=== PATIENT | female | born 1985 | race Caucasian/White ===

== ENCOUNTER 2018-03-02 13:04 | Inpatient (IN) | payer BC ==
[2018-03-10] MEDS ORDERED: METHYLERGONOVINE 0.2 MG/ML 1 ML AMP IM PRN (06:19)
[2018-03-10] MEDS ORDERED: OXYTOCIN 10 UNIT/ML 1 ML VIAL IM PRN (06:19)
[2018-03-10] MEDS ORDERED: CARBOPROST TROMETHAMINE 250 MCG/ML 1 ML AMP IM PRN (06:19)
[2018-03-10] MEDS ORDERED: TERBUTALINE 1 MG/ML VIAL SQ PRN (06:19)
[2018-03-10] MEDS ORDERED: LIDOCAINE 0.5% (PF) 5 MG/ML (50 ML SDV) SQ PRN (06:19)
[2018-03-10] MEDS ORDERED: OXYTOCIN 20 UNITS/1000 ML NS 1,000 ML IV SCH ×2 (06:30→18:15)
[2018-03-10 06:39] VITALS: BMI 43.2
[2018-03-10] MEDS: LACTATED RINGERS 1,000 ML IV SCH ×3 (06:41→13:53)
[2018-03-10 06:53] LABS: Basophils % (A) 0 %; Eosinophils # (A) 0.1 k/uL (0-0.7); Eosinophils % (A) 1 %; HCT 33.8 % (34.0-46.0); HGB 10.6 gm/dL (11.4-16.0); Lymphocytes # (A) 2.2 k/uL (1.0-4.8); Lymphocytes % (A) 25 %; MCH 28.2 pg (25.0-35.0); MCHC 31.3 g/dL (31.0-37.0); MCV 89.9 fL (80.0-100.0); Mean Platelet Volume 7.4; Monocytes # (A) 0.4 k/uL (0-1.0); Monocytes % (A) 5 %; Neutrophils # (A) 6.1 k/uL (1.3-7.7); Neutrophils % (A) 67 %; Platelet Count 271 k/uL (150-450); RBC 3.76 m/uL (3.80-5.40); RDW 14.9 % (11.5-15.5); WBC 9.1 k/uL (3.8-10.6)
--- NOTE | 2018-03-10 08:00 | P.HPOB ---
History of Present Illness H&P Date: 03/10/18 Chief Complaint: IUP at 41 states 1/7 weeks, post dates This is a very pleasant 32-year-old 1 para 0 at 41 and 1/sevenths weeks with an estimated due date of 121. Patient presents for elective induction of labor secondary to postdates. Patient is without complaints this morning. She notes good movement, denies contractions vaginal bleeding or loss of fluid. Next On blood work showed blood type A+, rubella immune, hepatitis B surface antigen negative, RPR nonreactive, GBS negative. Patient has been receiving routine care with myself since the first trimester, uncomplicated care. Review of Systems Constitutional: Denies chills, Denies fatigue, Denies fever Ears, nose, mouth and throat: Denies headache Cardiovascular: Reports leg edema Respiratory: Denies cough, Denies dyspnea Gastrointestinal: Denies constipation, Denies diarrhea, Denies nausea, Denies vomiting Genitourinary: Reports Past Medical History Past Medical History: No Reported History History of Any Multi-Drug Resistant Organisms: None Reported Additional Past Surgical History / Comment(s): wisdom teeth Past Anesthesia/Blood Transfusion Reactions: No Reported Reaction Past Psychological History: No Psychological Hx Reported Smoking Status: Former smoker Past Alcohol Use History: None Reported Past Drug Use History: None Reported - Past Family History Father Family Medical History: Chest Pain / Angina, Coronary Artery Disease (CAD), Diabetes Mellitus, Hypertension Additional Family Medical History / Comment(s): stroke Medications and Allergies Home Medications Medication Instructions Recorded Confirmed Type Pnv,Calcium 72/Iron/Folic Acid 1 each PO DAILY 03/10/18 03/10/18 History [ Plus Tablet] Allergies Allergy/AdvReac Type Severity Reaction Status Date / Time No Known Allergies Allergy Verified 03/10/18 06:18 Exam Osteopathic Statement: *. No significant issues noted on an osteopathic structural exam other than those noted in the History and Physical/Consult. Vital Signs Temp Pulse Resp BP Pulse Ox 03/10/18 06:26 97.8 F 111 H 18 130/68 98 Intake and Output 03/09/18 03/10/18 03/10/18 22:59 06:59 14:59 Other: Weight 110.677 kg Physical exam was done this morning, in general this is a well-nourished well- developed female in no acute distress she shows nonlabored breathing and lungs are clear to auscultation bilaterally, heart regular rate and rhythm, abdomen is gravid and appropriate for gestational age, on cervical exam cervix was 2/70/-2 amniotomy was performed and clear fluid was obtained. heart tones are noted to be reassuring and she is kira every 5 minutes. Results Result Diagrams: 03/10/18 06:30 Abnormal Lab Results - Last 24 Hours (Table) 03/10/18 Range/Units 06:30 RBC 3.76 L (3.80-5.40) m/uL Hgb 10.6 L (11.4-16.0) gm/dL Hct 33.8 L (34.0-46.0) % Assessment and Plan (1) Term Current Visit: Yes Status: Acute Code(s): Z34.80 - ENCOUNTER FOR SUPRVSN OF NORMAL , UNSP TRIMESTER SNOMED Code(s): 41396993 (2) Post-dates Current Visit: Yes Status: Acute Code(s): O48.0 - POST-TERM SNOMED Code(s): 45048516 Plan: Patient is admitted to labor and delivery for Pitocin induction of labor secondary to postdates. Patient does desire epidural once making cervical change we will request anesthesia to place this for the patient.
[2018-03-10] MEDS ORDERED: ROPIVACAINE 100 MG, fentaNYL (PF) 200 MCG in SODIUM CHLORIDE 0.9% 76 ML EPIDURAL ONE (14:06)
[2018-03-10] MEDS ORDERED: ACETAMINOPHEN IV (For NPO) 1,000 MG in EMPTY BAG 1 BAG IVPB ONE (17:15)
[2018-03-10] MEDS ORDERED: HYDROcodone/APAP 5-325MG 1 EACH TAB PO PRN (18:09)
[2018-03-10] MEDS ORDERED: ZOLPIDEM 5 MG TAB PO PRN (18:09)
[2018-03-10] MEDS ORDERED: HYDROCORTISONE 2.5% RECTAL CREAM 30 GM TUBE RECTAL PRN (18:09)
[2018-03-10] MEDS ORDERED: LANOLIN CREAM 5 GM TUBE TOPICAL PRN (18:09)
[2018-03-10] MEDS ORDERED: diphenhydrAMINE 50 MG CAP PO PRN (18:09)
[2018-03-10] MEDS ORDERED: WITCH HAZEL 1 EACH MED..PAD TOPICAL PRN (18:09)
[2018-03-10] MEDS ORDERED: ACETAMINOPHEN TAB 325 MG TAB PO PRN (18:09)
[2018-03-10] MEDS ORDERED: diphenhydrAMINE 25 MG CAP PO PRN (18:09)
[2018-03-10] MEDS ORDERED: SIMETHICONE 80 MG CHEWABLE PO PRN (18:09)
[2018-03-10] MEDS ORDERED: IBUPROFEN 600 MG TAB PO PRN (18:09)
[2018-03-10] MEDS ORDERED: diphenhydrAMINE 50 MG/ML 1 ML VIAL IVP PRN ×2 (18:09)
[2018-03-10] MEDS ORDERED: BENZOCAINE/MENTHOL SPRAY 1 GM/SPRAY AEROSOL TOPICAL PRN (18:09)
--- NOTE | 2018-03-10 18:13 | P.PROBDLV ---
Vaginal Delivery Note - . Vaginal Delivery Note: This is a very pleasant 32-year-old 1 para 0 at 41 and 1/sevenths weeks an estimated due date 1212. Patient was admitted to labor and delivery for a postdate induction. Patient was started on Pitocin for induction of labor and after regular contractions were noted amniotomy was performed. Patient progressed to 5 becoming uncomfortable requesting an epidural which was placed by anesthesia without difficulty. She progressed to complete began pushing and had a normal spontaneous vaginal delivery of a viable female infant at 1748 weight of 7 lbs. 13 oz. with Apgars of 9 and 9 at one and 5 metastases are subjectively. After a two-minute delayed the umbilical cord was doubly clamped and cut and the placenta was delivered spontaneously intact with a three-vessel cord being noted. The vaginal vault was then inspected and a second-degree midline laceration was noted this was repaired in the usual fashion with 3-0 Rapide. Afterwards hemostasis was appreciated. Next Estimated blood loss 400 mL All counts were correct 2 mother and tolerated delivery well and are resting comfortably
[2018-03-11] MEDS: SENNOSIDES-DOCUSATE SODIUM 1 EACH TAB PO SCH ×2 (04:06→09:31)
[2018-03-11 07:07] LABS: Basophils % (A) 0 %; Eosinophils % (A) 0 %; HCT 28.9 % (34.0-46.0); HGB 9.3 gm/dL (11.4-16.0); Lymphocytes # (A) 2.4 k/uL (1.0-4.8); Lymphocytes % (A) 19 %; MCH 28.7 pg (25.0-35.0); MCV 89.6 fL (80.0-100.0); Mean Platelet Volume 7.7; Monocytes # (A) 0.6 k/uL (0-1.0); Monocytes % (A) 4 %; Neutrophils # (A) 9.5 k/uL (1.3-7.7); Neutrophils % (A) 75 %; Platelet Count 230 k/uL (150-450); RBC 3.22 m/uL (3.80-5.40); WBC 12.8 k/uL (3.8-10.6)
[2018-03-11 08:28] VITALS: RESP 18
--- NOTE | 2018-03-11 08:48 | P.PNOBGVD ---
Subjective - Subjective Principal diagnosis: PPD 1 Interval history: Patient did well overnight. She is involuting and voiding without difficulty. She is tolerating a regular diet without nausea or vomiting. She states her pain is well-controlled. Her lochia is noted to be moderate. She denies concerns this morning. She is breast feeding with some difficulty and will work with the practice management consultant today Patient reports: Reports appetite normal, Reports voiding normally, Reports pain well controlled, Reports ambulating normally [place]: doing well Objective - Latest Vital Signs Latest vital signs: Vital Signs Temp Pulse Resp BP Pulse Ox 03/11/18 08:00 98.4 F 90 18 126/81 03/11/18 04:00 98.3 F 89 16 143/77 03/11/18 00:00 98.6 F 86 16 115/68 03/10/18 20:06 97.2 F L 102 H 16 140/60 03/10/18 19:36 102 H 15 111/60 03/10/18 19:06 97.9 F 93 16 108/60 03/10/18 18:51 100 18 103/60 03/10/18 18:36 97.9 F 96 18 98/53 99 03/10/18 18:21 98.6 F 113 H 18 116/57 03/10/18 18:06 110 H 17 118/58 Intake and Output 03/10/18 03/11/18 03/11/18 22:59 06:59 14:59 Other: # Voids 0 1 - Exam Extremities: Present: normal, edema Abdomen: Present: normal appearance, soft Uterus: Present: normal, firm - Labs Labs: Abnormal Lab Results - Last 24 Hours (Table) 03/11/18 Range/Units 06:32 WBC 12.8 H (3.8-10.6) k/uL RBC 3.22 L (3.80-5.40) m/uL Hgb 9.3 L (11.4-16.0) gm/dL Hct 28.9 L (34.0-46.0) % Neutrophils # 9.5 H (1.3-7.7) k/uL Assessment and Plan (1) Term Current Visit: Yes Status: Acute Code(s): Z34.80 - ENCOUNTER FOR SUPRVSN OF NORMAL , UNSP TRIMESTER SNOMED Code(s): 44837045 (2) Post-dates Current Visit: Yes Status: Acute Code(s): O48.0 - POST-TERM SNOMED Code(s): 66505918 (3) Status post normal vaginal delivery Current Visit: Yes Status: Acute Code(s): MEZ0814 - SNOMED Code(s): 053049820 (4) Second degree perineal laceration Current Visit: Yes Status: Acute Code(s): O70.1 - SECOND DEGREE PERINEAL LACERATION DURING DELIVERY SNOMED Code(s): 5176856 Plan: Patient is doing well we'll continue routine care and anticipate discharge home tomorrow.
[2018-03-11 16:05] VITALS: BP 128/74; PULSE 89; TEMP 98.1
== END 2018-03-11 19:15 | disposition home or self-care (01) | DRG 807 ==
LOC: 4FBP 03-10 06:06
PROVIDERS: ADMIT Obstetrics & Gynecology Obstetrics; ATTEND Obstetrics & Gynecology Obstetrics
PROC: 10E0XZZ Delivery of Products of Conception, External Approach (ICD-10-PCS; principal; 2018-03-10)
PROC: 0KQM0ZZ Repair Perineum Muscle, Open Approach (ICD-10-PCS; 2018-03-10)
PROC: 3E033VJ Introduction of Other Hormone into Peripheral Vein, Percutaneous Approach (ICD-10-PCS; 2018-03-10)
PROC: 10907ZC Drainage of Amniotic Fluid, Therapeutic from Products of Conception, Via Natural or Artificial Opening (ICD-10-PCS; 2018-03-10)
PROC: 00HU33Z Insertion of Infusion Device into Spinal Canal, Percutaneous Approach (ICD-10-PCS; 2018-03-10)
PROC: 3E0R3BZ Introduction of Anesthetic Agent into Spinal Canal, Percutaneous Approach (ICD-10-PCS; 2018-03-10)
DX: O48.0 Post-term pregnancy (principal); Z37.0 Single live birth; O70.1 Second degree perineal laceration during delivery; Z3A.41 41 weeks gestation of pregnancy; Z79.899 Other long term (current) drug therapy; Z87.891 Personal history of nicotine dependence; Z82.49 Family history of ischemic heart disease and other diseases of the circulatory system; Z83.3 Family history of diabetes mellitus; Z82.3 Family history of stroke
CPT/HCPCS: 85025; 86850; 86900; 86901; 88307

== ENCOUNTER → 2024-05-24 | Outpatient (CLI) | payer BC ==
--- NOTE | 2024-05-25 07:37 | MM ---
Reason for Exam: Screening (asymptomatic). Baseline mammogram. Patient History: Menarche at age 10. First Full-Term at age 32. Late child-bearing (after 30). Last menstrual period: 05/11/2024 Risk Values: Stella 5 year model risk: 0.8%. NCI Lifetime model risk: 13.6%. Prior Study Comparison: Patient's first Mammogram. Tissue Density: There are scattered areas of fibroglandular density. Findings: Analyzed By CAD. No significant mass, suspicious microcalcification, or other discrete abnormality is seen. Overall Assessment: Negative, BI-RAD 1 Management: Screening Mammogram of both breasts in 1 year. Patient should continue monthly self-breast exams. A clinical breast exam by your physician is recommended on an annual basis. This exam should not preclude additional follow-up of suspicious palpable abnormalities. Note on Stella scores and lifetime risk: 1. A Stella score greater than 3% is considered moderate risk. If this is the case, consider specialist referral to assess eligibility for a risk reducing agent. 2. If overall lifetime risk for the development of breast cancer is 20% or higher, the patient may qualify for future screening with alternating mammogram and breast MRI. [facility], , 05/25/2024 7:34 AM. Electronically signed and approved by: Anurag Reid M.D. Radiologist
== END | disposition home or self-care (01) ==
LOC: RADMAMWWP 14:34
PROVIDERS: ATTEND Obstetrics & Gynecology Obstetrics
DX: Z12.31 Encounter for screening mammogram for malignant neoplasm of breast (principal); R92.323 Mammographic fibroglandular density, bilateral breasts
CPT/HCPCS: 77067